=== PATIENT | female | born 1960 | race Caucasian/White ===

== ENCOUNTER 2017-03-10 09:34 | Inpatient (IN) | payer OTHER ==
[~2017-03-10] VITALS: Ht 157.5 cm; Wt 84.9 kg
--- NOTE | ~2017-03-10 | EKG ---
[place] [address] [employer] 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: [facility] : 1960 Requested By: Brii Weeks Order Number: [id number] MD: Daniel Ruth Measurements Intervals [place] Rate: 101 P: 34 [place]: 149 QRS: -3 QRSD: 88 T: 16 QT: 321 QTc: 416 Interpretive Statements Sinus tachycardia Otherwise no significant abnormality No previous ECG available for comparison Electronically Signed On 03-10-2017 12:48:10 K 12 SCHOOL PROFESSIONAL by Daniel Ruth [email or web address] <ELECTRONICALLY SIGNED> By: Daniel Ruth MD, [facility] 03/10/17 1248 0947 0947 Daniel Ruth MD, FACC /EPI
--- NOTE | ~2017-03-10 | HC ---
[facility] [place] [address] CONSULTATION Name: SERGIO JACKSON Room #: 217-P [facility] IN ..#: [id number] Admission: 03/10/17 Attend Phys: Cachorro Shell MD Discharge: Date of : 56 Report #: [id number] THIS REPORT FOR: //name// CC: Cachorro LIU unknown DATE OF SERVICE: 03/11/2017 ATTENDING PHYSICIAN: Dr. Cachorro Shell. REASON FOR CONSULTATION: Pneumonia, fever. HISTORY OF PRESENT ILLNESS: The patient is a 57-year-old white woman, resident of a local long term for a couple of years at least. She tells me she has been residing at the long term for a couple of years because of dementia. She relates she is admitted through the Emergency Room with right-sided chest pain, worsened by deep breathing, associated with fevers and leukocytosis and actually today she is better. The patient also relates that she was treated for pneumonia at the long term with an antibiotic given once daily and she knows antibiotics that are given only once daily will not take care of her pneumonia. PAST MEDICAL HISTORY: Bipolar disorder. Dementia. Depressive disorder. Gastroesophageal reflux. DRUG ALLERGIES: None listed. MEDICATIONS: She is currently on treatment with vancomycin 1 g IV two times daily, Zosyn 3.375 g IV every 6 hours. She has received a single dose of Levaquin 500 mg IV yesterday. She is also on treatment with methylprednisolone 40 mg IV twice daily, enoxaparin 40 mg subQ daily, meclizine, risperidone, clonazepam, meloxicam, intravenous fluid, zolpidem tartrate p.r.n. at bedtime, ondansetron 4 mg IV p.r.n. nausea and vomiting every 4 hours, p.r.n. hydrocodone, baclofen 10 mg b.i.d. SOCIAL HISTORY: . Resides in a local long term because of dementia. REVIEW OF SYSTEMS: Chest pain, fevers, night sweats, cough, all in all improved of lately. PHYSICAL EXAMINATION: GENERAL: Well-developed, mildly overweight woman. VITAL SIGNS: Temperature 100.2 yesterday, pulse 108, respirations 20, BP 102/60, O2 saturation 95% room air. HEENMT: Head normocephalic, atraumatic. Pupils reactive. Mouth: No thrush. NECK: Supple. LUNGS: Crackles right lung posteriorly. [facility] [address] [place] [address] CONSULTATION Name: SERGIO JACKSON Room #: 217-P [facility] [id number] Admission: 03/10/17 Attend Phys: Cachorro Shell MD Discharge: Date of : 56 Report #: [id number] HEART: S1, S2. No gallop or murmur. ABDOMEN: Soft, no masses or megaly. PELVIC AND RECTAL: Deferred. EXTREMITIES: No clubbing, cyanosis. NEUROLOGIC: Grossly within normal limits. LABORATORY DATA: On admission, sodium 134, potassium 3.9, BUN 13, creatinine 1, calcium 10.6, alkaline phosphatase 120. D-dimer mildly elevated 1.09. Drug screen positive for opiates. WBC 29,500, hemoglobin 16.5 g/dL, platelets 211,000. The white blood cell count differential revealed 78% segmented neutrophils, 9% bands. MRSA screen negative. The respiratory viral panel by PCR is pending at the time of this dictation. The urinalysis revealed 3+ blood. The microscopic exam revealed bacteriuria and mucus. ABGs yesterday revealed pH 7.46, pCO2 of 35, pO2 of 62, bicarbonate 25. This set of gases is on room air. MICROBIOLOGY DATA: Blood cultures negative. Urine is negative for legionella and Streptococcus pneumoniae antigen. Nasopharyngeal swab negative for influenza A and B antigens. RADIOLOGY EVALUATION: A CT scan chest PE protocol revealed dense consolidation right upper lung, some hilar and mediastinal adenopathy. Small right-sided pulmonary embolus. Review of the CT scan revealed also some infiltrate on the right upper lobe. The pneumonia had a roundish characterization, very likely we are dealing with a pneumonic event. Klebsiella pneumonia comes to mind. ASSESSMENT: 1. Right-sided pneumonia and very likely Klebsiella pneumonia. 2. Significant leukocytosis with bandemia. 3. Mild dehydration, improved. 4. Small right-sided pulmonary embolus. 5. Cigarette smoking. 6. Dementia. 7. Depression. SUGGESTIONS: For time being, recommend continuation of treatment with Zosyn and vancomycin. Possibly, we could discontinue vancomycin shortly, particularly since MRSA screen negative. We will await sputum culture results to make that final recommendation. The patient appears to have improved on current regimen of Zosyn and vancomycin. Consequently, we will continue same. [address] [address] CONSULTATION Name: SERGIO JACKSON Room #: 217-P [facility] IN M.R.#: [id number] Admission: 03/10/17 Attend Phys: Cachorro Shell MD Discharge: Date of : 56 Report #: [id number] Shell, thank you for requesting my suggestions in the care of your patient and I will continue to follow her along with you. <ELECTRONICALLY SIGNED> By: Pollo Felder MD 03/14/17 1228 1312 22 Pollo Felder MD /nt
--- NOTE | ~2017-03-10 | HC ---
[facility] [place] [address] CONSULTATION Name: SERGIO JACKSON Kyler Room #: 217-P [facility] IN ..#: [id number] Admission: 03/10/17 Attend Phys: Cachorro Shell MD Discharge: 03/15/17 Date of : 56 Report #: [id number] THIS REPORT FOR: //name// CC: Cachorro LIU unknown DATE OF SERVICE: 03/10/2017 REFERRING PROVIDER: REASON FOR CONSULTATION: Pneumonia. CHIEF COMPLAINT: Shortness of breath, incontinence, chest pain. HISTORY OF PRESENT ILLNESS: Our group was asked to evaluate the patient in consultation while hospitalized at [facility], a pleasant 57-year-old woman with a past medical history significant for tobacco use about half pack per day, as well as dementia, presented to the Emergency Department from [facility], where it sounds like she is in assisted living with her , with the above complaints of mainly right-sided lower chest pain anteriorly and laterally, was found on CT of the chest to have dense infiltrate versus mass-like area with some mediastinal lymphadenopathy. The patient did have an elevated white blood cell count of 29,000, was febrile with tachycardia and with bandemia. No elevated lactate, was started on antibiotics. No fluid bolus given to this point. The patient appears awake, alert, fully communicative and not requiring supplemental oxygen. ALLERGIES: None known. PAST MEDICAL HISTORY: 1. Bipolar disorder. 2. Dementia. 3. Anemia. 4. Esophageal reflux. 5. Chronic back pain for which she takes ibuprofen. OUTPATIENT MEDICATIONS: Include hydroxyzine for vertigo, cyclobenzaprine, Prilosec, VESIcare, atorvastatin, citalopram, senna, Cogentin, menthol, Cepacol lozenges and ibuprofen as well as nebulizer treatments p.r.n. SOCIAL HISTORY: Active smoker, about half pack per day. No alcohol consumption. Currently lives in [facility], what sounds like assisted living with her . FAMILY HISTORY: Significant for father who had vascular disease including a stroke. [facility] [address] [place] [address] CONSULTATION Name: SERGIO JACKSON Kyler Room #: 217-P [facility] IN ..#: [id number] Admission: 03/10/17 Attend Phys: Cachorro Shell MD Discharge: 03/15/17 Date of : 56 Report #: [id number] REVIEW OF SYSTEMS: CONSTITUTIONAL: No fever, no chills or rigors. ENT: No upper respiratory congestion or dysphagia or sore throat. CARDIOVASCULAR: No coronary history. No chest pain or palpitations. GASTROINTESTINAL: Some nausea, no vomiting. GENITOURINARY: Some incontinence noted with urgency, no hematuria or dysuria. INTEGUMENT: Denies any rash. MUSCULOSKELETAL: No new joint pain, swelling. Has some chronic back pain for which she takes ibuprofen. PHYSICAL EXAMINATION: VITAL SIGNS: Afebrile, pulse 90s, respiratory rate 16, blood pressure 100/73, oxygen saturation 94% on room air. GENERAL: This is a pleasant middle-aged woman, does not appear in distress, although with some delay in mentation and forgetfulness. EENT: Clear oropharynx. No thrush. No erythema. NECK: Supple. No lymphadenopathy. LUNGS: Diminished on the right with inspiratory crackles on the right. CARDIOVASCULAR: Heart tachycardic, but regular. No murmurs noted. ABDOMEN: Soft, nontender, no masses. EXTREMITIES: Warm, 2+ pulses, no edema. INTEGUMENT: No rash. LABORATORY DATA: White blood cell count 30,000; hemoglobin 17; hematocrit 48; platelet count 211; band forms 9%. Sodium 134, potassium 3.9, chloride 100, bicarbonate 27, BUN 13, creatinine 1.0, glucose 115, alkaline phosphatase 120. Troponin is negative. Albumin normal. Arterial blood gas done on room air revealed pH 7.47, pCO2 of 36, pO2 62, bicarbonate 25. Lactate 1.5. Drug of abuse screen positive only for opiates. Urinalysis with some blood in the urine with 3-10 red blood cells, no pyuria appreciated. D-dimer 1.09. CT chest as described. IMPRESSION: 1. Right lung infiltrate, likely pneumonia, less likely a malignant process. 2. Underlying chronic obstructive pulmonary disease, in severity does not sound severe. 3. Tobacco abuse. 4. Dementia. 5. Bipolar disorder. 6. Early sepsis as evidenced by tachycardia, fever, leukocytosis, bandemia and respiratory insufficiency. 7. Small pulmonary embolism noted on CT chest. RECOMMENDATIONS: 1. Anticoagulation. [address] [address] CONSULTATION Name: SERGIO JACKSON Room #: 217-P [facility] IN M.R.#: [id number] Admission: 03/10/17 Attend Phys: Cachorro Shell MD Discharge: 03/15/17 Date of : 56 Report #: [id number] 2. Bronchodilators. 3. Infectious Disease consultation. 4. Continue with antibiotic therapy. 5. Nasal swab for MRSA and respiratory viral panel. 6. Sputum and blood cultures. 7. Low-dose steroids. 8. Urinary pneumococcal legionella antigen test. 9. Additional recommendations to follow. Thank you for requesting our suggestions. <ELECTRONICALLY SIGNED> By: David Lee MD 03/17/17 2316 1629 0722 David Lee MD /nt
--- NOTE | ~2017-03-10 | D ---
[facility] [place] [address] DISCHARGE SUMMARY Name: SERGIO JACKSON Room #: 217-P [facility]..#: [id number] Admission: 03/10/17 Attend Phys: Cachorro Shell MD Discharge: 03/15/17 Date of : 56 Report #: [id number] THIS REPORT FOR: //name// CC: Cachorro Shell [facility] unknown DATE OF SERVICE: 03/15/2017 HISTORY OF PRESENT ILLNESS: The patient is a 57-year-old female who presented to the emergency room with cough. The patient is a intermediate resident. Please refer to the admission H and P for details. In brief, the patient was found to have leukocytosis with bandemia, as well as right lung consolidation. Findings were consistent with pneumonia. HOSPITALIZATION COURSE: The patient was hospitalized for healthcare-associated pneumonia, the patient lives at the intermediate. CT angiography was also obtained for further evaluation, that showed a dense right upper lobe posterior infiltrate or questionable mass. Single small left lower lobe pulmonary embolism was also seen. The patient was started on broad spectrum antibiotics. Checkman and infectious disease specialist were consulted. Right upper lobe infiltrate was felt to be more infectious etiology. On antibiotics, the patient's condition improved significantly. Antibiotics were deescalated. White count has normalized from about 30,000 on admission. The patient currently feels much better. She is afebrile, and shortness of breath has resolved. The patient will be discharged back to the intermediate on outpatient antibiotics. She is also prescribed Xarelto for small right-sided pulmonary embolism. DISCHARGE DIAGNOSES: 1. Healthcare-associated pneumonia, involving right upper lobe. Clinically much better. The patient is discharged on oral antibiotics. Close follow up with imaging study is recommended to ensure resolution of the infiltrate. 2. Single small left lower lobe pulmonary embolism on CT angiography of the chest. Treated with Xarelto. SECONDARY DIAGNOSES: History of bipolar disease, major depression, vertigo, gastroesophageal reflux disease, and irritable bowel syndrome. DISCHARGE MEDICATIONS: Please refer to the medication reconciliation list. In brief, the patient is started on Levaquin, this will be continued for 7 more days. Xarelto 15 mg b.i.d., followed by 20 mg once a day in 20 days. Rest of the home medications are continued unchanged. [address] [address] DISCHARGE SUMMARY Name: SERGIO JACKSON Kyler Room #: 217-P [facility] IN ..#: [id number] Admission: 03/10/17 Attend Phys: Cahcorro Shell MD Discharge: 03/15/17 Date of : 56 Report #: [id number] FOLLOWUP PLAN: Follow up with the primary care physician in 1-2 weeks. I spent greater than 30 minutes to coordinate the patient's discharge from the hospital. <ELECTRONICALLY SIGNED> By: Brett Rdz MD 03/16/17 0746 1356 1529 Brett Rdz MD /nt
[~2017-03-10 09:34] MED LIST: BENZTROPINE ME0.5 MG PO; CITALOPRAM HBR40 MG PO; CLONAZEPAM 0.50.5 M1 PO; CYCLOBENZAPRINE10 MG PO; HYDROCODONE-AP1 EAC6 PO; HYDROXYZINE HCL25 M1 PO; KLONOPIN1 MG PO; LIPITOR10 MG PO; MOBIC7.5 M1 PO; PRILOSEC20 MG PO; RISPERDAL0.5 MG PO; VESICARE 5 MG TA5 MG PO
[2017-03-10 09:35] VITALS: BP 124/81
[2017-03-10] MEDS ORDERED: ARICEPT 5 MG TAB5 MG PO (09:57)
[2017-03-10] MEDS ORDERED: SENNA8.6 MG PO (09:57)
[2017-03-10] MEDS ORDERED: ANTIVERT25 MG PO (09:58)
[2017-03-10] MEDS ORDERED: BENTYL 20 MG TA20 M1 PO (09:59)
[2017-03-10] MEDS ORDERED: CELEXA10 MG PO (10:00)
[2017-03-10] MEDS ORDERED: CELEXA20 MG PO (10:00)
[2017-03-10] MEDS ORDERED: LIORESAL 10 MG10 MG PO (10:01)
[2017-03-10] MEDS ORDERED: TUMS PO (10:02)
[2017-03-10] MEDS ORDERED: IBUPROFEN 400400 M2 PO (10:03)
[2017-03-10] MEDS ORDERED: CEPACOL SORE T1 EAC7 PO (10:03)
[2017-03-10] MEDS ORDERED: CLARITIN10 MG PO (10:03)
[2017-03-10 10:16] LABS: HEMATOCRIT 48.2 % (37.0-47.0); HEMOGLOBIN 16.5 gm/dL (12.0-15.0); MCH 32.4 pg (26.0-34.0); MCHC 34.2 g/dL (28.0-37.0); MCV 94.9 fL (80.0-100.0); PLATELET COUNT 211 thou/uL (150-400); RBC 5.08 mil/uL (4.20-5.00); RDW 12.8 % (10.5-14.5); WBC 29.5 thou/uL (4.0-11.0)
[2017-03-10 10:17] LABS: MANUAL DIFF YES
[2017-03-10 10:25] LABS: ANION GAP 7 mmol/L (7-16); BUN 13 mg/dL (7-18); CALCIUM 10.6 mg/dL (8.5-10.1); CHLORIDE 100 mmol/L (98-107); CO2 27 mmol/L (21-32); GLUCOSE 115 mg/dL (74-106); POTASSIUM 3.9 mmol/L (3.5-5.1); SODIUM 134 mmol/L (136-145)
[2017-03-10 10:34] LABS: TROPONIN-I < 0.04 ng/mL (<0.06)
[2017-03-10 10:51] LABS: ABG SAMPLE TYPE ARTERIAL; BE(vivo) 1.7 mmol/L (-2 to +3); LACTATE 1.54 mmol/L (0.5-2.0); O2(CT) 20.2 mL/dL (15.0-23.0); O2Hb 89.5 % (92.0-98.0); PCO2 35.5 mmHg (35.0-45.0); pH 7.466 (7.360-7.450); sO2 93.2 % (92.0-98.0); tCO2 26.1 mmol/L (24.0-30.0)
[2017-03-10 10:52] LABS: FIO2 21 %; STICK SITE R.RADIAL
[2017-03-10 10:56] LABS: ABSOLUTE NEUTROPHILS 25.7 thou/uL (1.4-8.2); PLATELET ESTIMATE NORMAL; TOTAL CELL COUNT 100
[2017-03-10 11:23] LABS: ALBUMIN 3.6 g/dL (3.4-5.0); DIRECT BILIRUBIN 0.2 mg/dL (<0.1-0.3); TOTAL BILIRUBIN 0.5 mg/dL (<0.1-1.0); TOTAL PROTEIN 7.9 g/dL (6.4-8.2)
[2017-03-10 12:14] LABS: URINE BILIRUBIN NEGATIVE (Negative); URINE BLOOD 3+ (Negative); URINE COLOR YELLOW; URINE GLUCOSE-RANDOM* NEGATIVE (Negative); URINE KETONES NEGATIVE (Negative); URINE NITRITE NEGATIVE (Negative); URINE PROTEIN (DIPSTICK) NEGATIVE (Negative); URINE SPECIFIC GRAVITY 1.015 (1.005-1.035); URINE UROBILINOGEN 0.2 E.U./dl (0.2-1.0)
[2017-03-10 12:20] LABS: BACTERIA >30 Many /HPF (None Seen); SQUAMOUS 0-3 Few /LPF (0-3)
[2017-03-10 12:21] LABS: AMP/METHAMP Negative (Negative); BARBITURATES Negative (Negative); BENZODIAZEPINES Negative (Negative); CASTS None Seen /LPF (None Seen); COCAINE Negative (Negative); CRYSTALS None Seen /LPF (None Seen); METHADONE Negative (Negative); OPIATES POSITIVE (Negative); PCP Negative (Negative); URINE RBC 3-10 Few /HPF (0-2); URINE WBC 0-5 Rare /HPF (0-5)
[2017-03-10 14:21] LABS: APTT 27.9 Seconds (24.5-32.8); PROTIME 10.6 Seconds (9.3-11.4)
[2017-03-10 15:37] VITALS: BP 100/73
[2017-03-10 19:33] VITALS: BP 124/70
[2017-03-10 23:41] VITALS: BP 111/64
[2017-03-11 03:44] VITALS: BP 107/67
[2017-03-11 03:53] LABS: HEMATOCRIT 40.4 % (37.0-47.0); MCH 31.9 pg (26.0-34.0); MCHC 33.8 g/dL (28.0-37.0); MCV 94.4 fL (80.0-100.0); RBC 4.27 mil/uL (4.20-5.00); WBC 29.7 thou/uL (4.0-11.0)
[2017-03-11 04:08] LABS: HEMOGLOBIN 13.6 gm/dL (12.0-15.0)
[2017-03-11 04:17] LABS: CREATININE 0.8 mg/dL (0.6-1.0); POTASSIUM 3.7 mmol/L (3.5-5.1)
[2017-03-11 07:38] VITALS: BP 129/74
[2017-03-11 11:30] VITALS: BP 102/60
[2017-03-11 15:35] VITALS: BP 115/68
[2017-03-11 19:58] VITALS: BP 111/74
[2017-03-12 02:58] LABS: HEMATOCRIT 39.3 % (37.0-47.0); HEMOGLOBIN 13.1 gm/dL (12.0-15.0); MCH 31.6 pg (26.0-34.0); MCHC 33.2 g/dL (28.0-37.0); PLATELET COUNT 210 thou/uL (150-400); RBC 4.13 mil/uL (4.20-5.00); RDW 13.3 % (10.5-14.5)
[2017-03-12 03:05] LABS: MANUAL DIFF YES
[2017-03-12 03:14] VITALS: BP 113/68
[2017-03-12 04:38] LABS: ABSOLUTE NEUTROPHILS 21.9 thou/uL (1.4-8.2); TOTAL CELL COUNT 100
[2017-03-12 07:35] VITALS: BP 126/83
[2017-03-12 11:11] VITALS: BP 119/80
[2017-03-12 15:37] VITALS: BP 110/71
[2017-03-12 19:50] VITALS: BP 111/70
[2017-03-13 04:17] VITALS: BP 126/86
[2017-03-13 04:23] LABS: HEMATOCRIT 38.6 % (37.0-47.0); HEMOGLOBIN 12.9 gm/dL (12.0-15.0); MCH 31.5 pg (26.0-34.0); MCHC 33.4 g/dL (28.0-37.0); MCV 94.3 fL (80.0-100.0); PLATELET COUNT 225 thou/uL (150-400); RDW 13.3 % (10.5-14.5); WBC 14.3 thou/uL (4.0-11.0)
[2017-03-13 04:25] LABS: MANUAL DIFF YES
[2017-03-13 05:42] LABS: ABSOLUTE NEUTROPHILS 12.9 thou/uL (1.4-8.2); METAMYELOCYTES 1 %; TOTAL CELL COUNT 100
[2017-03-13 16:00] VITALS: BP 149/88
[2017-03-13 20:47] VITALS: BP 124/84
[2017-03-14 03:20] VITALS: BP 153/102
[2017-03-14 03:41] LABS: HEMATOCRIT 39.8 % (37.0-47.0); HEMOGLOBIN 13.7 gm/dL (12.0-15.0); MCH 32.2 pg (26.0-34.0); MCHC 34.4 g/dL (28.0-37.0); MCV 93.6 fL (80.0-100.0); PLATELET COUNT 237 thou/uL (150-400); RBC 4.25 mil/uL (4.20-5.00); RDW 13.5 % (10.5-14.5); WBC 10.6 thou/uL (4.0-11.0)
[2017-03-14 03:45] LABS: MANUAL DIFF YES
[2017-03-14 05:26] LABS: ABSOLUTE NEUTROPHILS 8.6 thou/uL (1.4-8.2); MYELOCYTES 1 %; TOTAL CELL COUNT 100
[2017-03-14 08:58] VITALS: BP 130/83
[2017-03-14 11:00] VITALS: BP 144/94
[2017-03-14 15:00] VITALS: BP 123/80
[2017-03-14 19:16] VITALS: BP 136/86
[2017-03-14 23:07] LABS: INFLUENZA B Negative (Negative); METAPNEUMOVIRUS Negative (Negative)
[2017-03-15 04:35] VITALS: BP 132/84
[2017-03-15 04:38] LABS: HEMATOCRIT 39.8 % (37.0-47.0); HEMOGLOBIN 13.6 gm/dL (12.0-15.0); MCHC 34.1 g/dL (28.0-37.0); MCV 93.7 fL (80.0-100.0); PLATELET COUNT 233 thou/uL (150-400); RBC 4.24 mil/uL (4.20-5.00); RDW 13.1 % (10.5-14.5); WBC 10.9 thou/uL (4.0-11.0)
[2017-03-15 04:40] LABS: MANUAL DIFF YES
[2017-03-15 04:45] LABS: CALCIUM 9.5 mg/dL (8.5-10.1); CREATININE 0.8 mg/dL (0.6-1.0); POTASSIUM 3.3 mmol/L (3.5-5.1)
[2017-03-15 05:52] LABS: ABSOLUTE NEUTROPHILS 5.9 thou/uL (1.4-8.2); METAMYELOCYTES 4 %; NUCLEATED RBCS 1 /100WBC; TOTAL CELL COUNT 100
[2017-03-15 06:05] LABS: LARGE PLATELETS OCCASIONAL
[2017-03-15 08:18] VITALS: BP 135/91
[2017-03-15 12:04] VITALS: BP 135/94
[2017-03-15] MEDS ORDERED: HYDROCODONE-AP1 EAC6 PO (14:03)
[2017-03-15] MEDS ORDERED: XARELTO15 MG PO (14:03)
[2017-03-15] MEDS ORDERED: PREDNISONE 10 M10 MG PO (14:03)
[2017-03-15] MEDS ORDERED: LEVAQUIN 750 M750 MG PO (14:03)
[2017-03-15] MEDS ORDERED: CLONAZEPAM 1 MG1 M1 PO (14:03)
[2017-03-15] MEDS ORDERED: XARELTO20 MG PO (14:03)
[2017-03-15 15:46] VITALS: BP 139/96
== END 2017-03-15 16:00 | DRG 177 ==
LOC: ER 09:34 → EROBS 14:17 → 2N 14:17
PROVIDERS: Emergency Medicine; Hospitalist; Internal Medicine Endocrinology, Diabetes & Metabolism; Internal Medicine Pulmonary Disease
PROC: 5A09357 Assistance with Respiratory Ventilation, Less than 24 Consecutive Hours, Continuous Positive Airway Pressure (ICD-10-PCS; principal; 2017-03-14)
DX: J15.0 Pneumonia due to Klebsiella pneumoniae (principal); I26.99 Other pulmonary embolism without acute cor pulmonale; F31.9 Bipolar disorder, unspecified; K21.9 Gastro-esophageal reflux disease without esophagitis; F17.210 Nicotine dependence, cigarettes, uncomplicated; E66.9 Obesity, unspecified; F03.90 Unspecified dementia, unspecified severity, without behavioral disturbance, psychotic disturbance, mood disturbance, and anxiety; E87.6 Hypokalemia; K58.9 Irritable bowel syndrome, unspecified; E86.0 Dehydration; Z68.34 Body mass index [BMI] 34.0-34.9, adult; Z71.6 Tobacco abuse counseling; Z79.899 Other long term (current) drug therapy; Z82.49 Family history of ischemic heart disease and other diseases of the circulatory system; Z82.3 Family history of stroke
CPT/HCPCS: 10078; 10797

== ENCOUNTER 2018-03-28 16:25 | Emergency (ER) | payer OTHER ==
[~2018-03-28] VITALS: Ht 157.5 cm; Wt 54.4 kg
[~2018-03-28 16:25] MED LIST changes: +ANTIVERT25 MG PO; +ARICEPT 5 MG TAB5 MG PO; +BENTYL 20 MG TA20 M1 PO; +CELEXA10 MG PO; +CELEXA20 MG PO; +CEPACOL SORE T1 EAC7 PO; +CLARITIN10 MG PO; +CLONAZEPAM 1 MG1 M1 PO; +IBUPROFEN 400400 M2 PO; +LEVAQUIN 750 M750 MG PO; +LIORESAL 10 MG10 MG PO; +PREDNISONE 10 M10 MG PO; +SENNA8.6 MG PO; +TUMS PO; +XARELTO15 MG PO; +XARELTO20 MG PO
[2018-03-28 16:57] LABS: URINE BILIRUBIN NEGATIVE (Negative); URINE BLOOD 1+ (Negative); URINE CLARITY CLEAR; URINE COLOR YELLOW; URINE GLUCOSE-RANDOM* NEGATIVE (Negative); URINE KETONES NEGATIVE (Negative); URINE LEUKOCYTES-REFLEX TRACE (Negative); URINE NITRITE-REFLEX POSITIVE (Negative); URINE PROTEIN (DIPSTICK) NEGATIVE (Negative); URINE UROBILINOGEN 0.2 E.U./dl (0.2-1.0)
[2018-03-28] MEDS ORDERED: XARELTO20 MG PO (16:58)
[2018-03-28 17:02] LABS: BACTERIA-REFLEX >30 Many /HPF (None Seen); CASTS None Seen /LPF (None Seen); CRYSTALS None Seen /LPF (None Seen); SQUAMOUS 0-3 Few /LPF (0-3); URINE RBC 0-2 Rare /HPF (0-2); URINE WBC-REFLEX 6-15 Few /HPF (0-5); WBC CLUMPS Few (None Seen)
[2018-03-28 17:19] LABS: ABSOLUTE NEUTROPHILS 3.7 thou/uL (1.4-8.2); BASOPHILS 0.5 % (0.0-2.0); EOSINOPHILS 0.9 % (0.0-3.0); HEMATOCRIT 44.7 % (37.0-47.0); HEMOGLOBIN 15.8 gm/dL (12.0-15.0); LYMPHOCYTES 25.7 % (24.0-44.0); MCH 33.2 pg (26.0-34.0); MCHC 35.4 g/dL (28.0-37.0); MCV 93.8 fL (80.0-100.0); MONOCYTES 7.8 % (1.0-8.0); PLATELET COUNT 246 thou/uL (150-400); POLYS 65.1 % (36.0-66.0); RBC 4.77 mil/uL (4.20-5.00); RDW 12.4 % (10.5-14.5); WBC 5.6 thou/uL (4.0-11.0)
[2018-03-28 17:31] LABS: CREATININE 0.6 mg/dL (0.6-1.0); POTASSIUM 4.4 mmol/L (3.5-5.1)
[2018-03-28 17:37] LABS: ALBUMIN 4.1 g/dL (3.4-5.0); TOTAL BILIRUBIN 0.3 mg/dL (<0.1-1.0); TOTAL PROTEIN 7.8 g/dL (6.4-8.2)
[2018-03-28] MEDS ORDERED: KEFLEX500 M1 PO (18:37)
[2018-03-28] MEDS ORDERED: PHENAZOPYRIDIN200 M2 PO (18:37)
[2018-03-28 19:59] VITALS: BP 106/65
== END 2018-03-28 20:02 | disposition home or self-care (01) ==
LOC: ER 16:25
PROVIDERS: Physician Assistant
DX: N39.0 Urinary tract infection, site not specified (principal); F17.210 Nicotine dependence, cigarettes, uncomplicated; F31.9 Bipolar disorder, unspecified; K21.9 Gastro-esophageal reflux disease without esophagitis; K58.9 Irritable bowel syndrome, unspecified; Z90.49 Acquired absence of other specified parts of digestive tract; Z86.2 Personal history of diseases of the blood and blood-forming organs and certain disorders involving the immune mechanism

== ENCOUNTER 2018-10-05 18:51 | Emergency (ER) | payer OTHER ==
[~2018-10-05] VITALS: Ht 157.5 cm; Wt 59.0 kg
[~2018-10-05 18:51] MED LIST changes: +KEFLEX500 M1 PO; +PHENAZOPYRIDIN200 M2 PO
[2018-10-05 19:25] LABS: HEMATOCRIT 41.7 % (37.0-47.0); HEMOGLOBIN 14.4 gm/dL (12.0-15.0); MCHC 34.5 g/dL (28.0-37.0); MCV 95.6 fL (80.0-100.0); RBC 4.36 mil/uL (4.20-5.00); RDW 12.1 % (10.5-14.5); WBC 6.1 thou/uL (4.0-11.0)
[2018-10-05 19:32] LABS: ANION GAP 10 mmol/L (7-16); BUN 10 mg/dL (7-18); CALCIUM 9.5 mg/dL (8.5-10.1); CHLORIDE 103 mmol/L (98-107); CO2 27 mmol/L (21-32); CREATININE 0.9 mg/dL (0.6-1.0); GLUCOSE 125 mg/dL (74-106); POTASSIUM 3.5 mmol/L (3.5-5.1); SODIUM 140 mmol/L (136-145)
[2018-10-05 19:40] LABS: TROPONIN-I <0.06 ng/mL (<0.06)
[2018-10-05 20:56] LABS: URINE BILIRUBIN NEGATIVE (Negative); URINE BLOOD TRACE (Negative); URINE CLARITY CLEAR; URINE COLOR YELLOW; URINE GLUCOSE-RANDOM* NEGATIVE (Negative); URINE KETONES NEGATIVE (Negative); URINE LEUKOCYTES-REFLEX TRACE (Negative); URINE PROTEIN (DIPSTICK) NEGATIVE (Negative); URINE SPECIFIC GRAVITY <= 1.005 (1.005-1.035); URINE UROBILINOGEN 0.2 E.U./dl (0.2-1.0)
[2018-10-05 20:57] LABS: URINE NITRITE-REFLEX POSITIVE (Negative)
[2018-10-05 21:11] LABS: AMP/METHAMP Negative (Negative); BARBITURATES Negative (Negative); BENZODIAZEPINES Negative (Negative); COCAINE Negative (Negative); METHADONE Negative (Negative); OPIATES Negative (Negative); PCP Negative (Negative)
[2018-10-05 21:14] LABS: BACTERIA-REFLEX >30 Many /HPF (None Seen); SQUAMOUS 0-3 Few /LPF (0-3)
[2018-10-05 21:15] LABS: CASTS None Seen /LPF (None Seen); CRYSTALS None Seen /LPF (None Seen); URINE RBC 0-2 Rare /HPF (0-2); URINE WBC-REFLEX 0-5 Rare /HPF (0-5)
[2018-10-05 21:17] LABS: ALBUMIN 3.6 g/dL (3.4-5.0); DIRECT BILIRUBIN < 0.1 mg/dL (<0.1-0.3); SGOT 16 U/L (15-37); SGPT 16 U/L (30-65); TOTAL BILIRUBIN 0.2 mg/dL (<0.1-1.0); TOTAL PROTEIN 7.1 g/dL (6.4-8.2)
[2018-10-05] MEDS ORDERED: KEFLEX500 M1 PO (21:33)
[2018-10-05 21:48] VITALS: BP 110/64
--- NOTE | 2018-10-06 07:29 | EKG ---
[address] [place] [place] [address] ELECTROCARDIOGRAM REPORT Name: AB JACKSONJOSE Chávez Room #: 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: papo : 1960 Requested By: Esteban Sanderson Order Number: [id number] MD: Daniel Ruth Measurements Intervals [place] Rate: 94 P: 22 [place]: 139 QRS: -12 QRSD: 86 T: 17 QT: 352 QTc: 441 Interpretive Statements Sinus rhythm No significant abnormality Compared to ECG 03/10/2017 09:47:03 Sinus tachycardia no longer present Electronically Signed On 10-06-2018 7:29:36 CDT by Daniel Ruth [email or web address] ��������������������������������������������� <ELECTRONICALLY SIGNED> ���������������������������������������� By: Daniel Ruht MD, [facility] ��������������������������������������������� 10/06/18 0729 191 18 Daniel Ruth MD, FACC /EPI
== END 2018-10-05 21:49 | disposition home or self-care (01) ==
LOC: ER 18:51
PROVIDERS: Emergency Medicine
DX: R55 Syncope and collapse (principal); N39.0 Urinary tract infection, site not specified; F31.9 Bipolar disorder, unspecified; K21.9 Gastro-esophageal reflux disease without esophagitis; F17.210 Nicotine dependence, cigarettes, uncomplicated

== ENCOUNTER 2018-10-29 10:40 | Emergency (ER) | payer OTHER ==
[~2018-10-29] VITALS: Ht 162.6 cm; Wt 73.9 kg
[2018-10-29 12:53] LABS: URINE BILIRUBIN NEGATIVE (Negative); URINE BLOOD TRACE (Negative); URINE CLARITY SL CLOUDY; URINE COLOR YELLOW; URINE GLUCOSE-RANDOM* NEGATIVE (Negative); URINE KETONES NEGATIVE (Negative); URINE LEUKOCYTES-REFLEX TRACE (Negative); URINE NITRITE-REFLEX POSITIVE (Negative); URINE PROTEIN (DIPSTICK) NEGATIVE (Negative); URINE UROBILINOGEN 0.2 E.U./dl (0.2-1.0)
[2018-10-29] MEDS ORDERED: CIPRO500 MG PO (12:55)
[2018-10-29] MEDS ORDERED: PHENAZOPYRIDIN200 M2 PO (12:56)
[2018-10-29 13:02] LABS: BACTERIA-REFLEX >30 Many /HPF (None Seen); CASTS None Seen /LPF (None Seen); CRYSTALS None Seen /LPF (None Seen); SQUAMOUS 4-10 Moderate /LPF (0-3); URINE RBC 0-2 Rare /HPF (0-2); URINE WBC-REFLEX 6-15 Few /HPF (0-5)
[2018-10-29 13:28] VITALS: BP 124/83
== END 2018-10-29 13:29 | disposition home or self-care (01) ==
LOC: ER 10:40
PROVIDERS: Nurse Practitioner Family
DX: N39.0 Urinary tract infection, site not specified (principal); K21.9 Gastro-esophageal reflux disease without esophagitis; F31.9 Bipolar disorder, unspecified; F17.210 Nicotine dependence, cigarettes, uncomplicated; Z86.2 Personal history of diseases of the blood and blood-forming organs and certain disorders involving the immune mechanism

== ENCOUNTER 2018-11-28 09:13 | Emergency (ER) | payer OTHER ==
[~2018-11-28] VITALS: Ht 157.5 cm; Wt 60.3 kg
[~2018-11-28 09:13] MED LIST changes: +CIPRO500 MG PO
[2018-11-28] MEDS ORDERED: EPCLUSA 400 MG1 EACH PO (09:30)
[2018-11-28] MEDS ORDERED: CYMBALTA60 MG PO (09:32)
[2018-11-28] MEDS ORDERED: BENTYL 20 MG TA20 M1 PO (09:33)
[2018-11-28 10:35] VITALS: BP 113/82
== END 2018-11-28 10:35 | disposition home or self-care (01) ==
LOC: ER 09:13
DX: F31.9 Bipolar disorder, unspecified (principal); K21.9 Gastro-esophageal reflux disease without esophagitis; K58.9 Irritable bowel syndrome, unspecified; F17.210 Nicotine dependence, cigarettes, uncomplicated; Z86.2 Personal history of diseases of the blood and blood-forming organs and certain disorders involving the immune mechanism; Z88.2 Allergy status to sulfonamides; W18.39XA Other fall on same level, initial encounter; Y92.89 Other specified places as the place of occurrence of the external cause; Y93.89 Activity, other specified; Y99.8 Other external cause status

== ENCOUNTER 2019-03-07 00:04 | Emergency (ER) | payer OTHER ==
[~2019-03-07] VITALS: Ht 157.5 cm; Wt 53.5 kg
[~2019-03-07 00:04] MED LIST changes: +CYMBALTA60 MG PO; +EPCLUSA 400 MG1 EACH PO
[2019-03-07] MEDS ORDERED: MACROBID 100 M100 MG PO (00:17)
[2019-03-07 01:15] LABS: HEMATOCRIT 35.9 % (37.0-47.0); HEMOGLOBIN 12.3 gm/dL (12.0-15.0); MCH 32.3 pg (26.0-34.0); MCHC 34.1 g/dL (28.0-37.0); MCV 94.7 fL (80.0-100.0); PLATELET COUNT 249 thou/uL (150-400); RBC 3.79 mil/uL (4.20-5.00); RDW 12.4 % (10.5-14.5); WBC 12.5 thou/uL (4.0-11.0)
[2019-03-07 01:27] LABS: ANION GAP 11 mmol/L (7-16); BUN 10 mg/dL (7-18); CALCIUM 9.2 mg/dL (8.5-10.1); CHLORIDE 101 mmol/L (98-107); CO2 26 mmol/L (21-32); CREATININE 0.5 mg/dL (0.6-1.0); GLUCOSE 96 mg/dL (74-106); POTASSIUM 3.5 mmol/L (3.5-5.1); SODIUM 138 mmol/L (136-145)
[2019-03-07 01:33] LABS: TROPONIN-I <0.06 ng/mL (<0.06)
[2019-03-07] MEDS ORDERED: TESSALON PERLE100 MG PO (01:35)
[2019-03-07] MEDS ORDERED: AUGMENTIN 875-1 EACH PO (01:35)
[2019-03-07 02:24] LABS: ABSOLUTE NEUTROPHILS 9.1 thou/uL (1.4-8.2)
[2019-03-07 02:25] LABS: PLATELET ESTIMATE NORMAL
[2019-03-07 02:38] VITALS: BP 103/62
--- NOTE | 2019-03-07 08:53 | EKG ---
[place] [address] [facility] [place] [address] ELECTROCARDIOGRAM REPORT Name: AB JACKSONJOSE Chávez [facility] [id number] Admission: 03/07/19 Attend Phys: Discharge: 03/07/19 Date of : 56 Report #: [id number] THIS REPORT FOR: //name// [facility] ED Test Date: 2019-03-07 Test Time: 00:14:14 Pat Name: SERGIO JACKSON Department: Room: Gender: F Parts Counter Associate: JAYCOB : 1960 Requested By: Frank Humphries Order Number: [id number] MD: Daniel Ruth Measurements Intervals [place] Rate: 82 P: 35 CT: 133 QRS: -8 QRSD: 88 T: 54 QT: 389 QTc: 455 Interpretive Statements Sinus rhythm Anteroseptal infarct, age indeterminate Baseline wander in lead(s) V2 Compared to ECG 10/05/2018 19:19:24 Myocardial infarct finding now present Electronically Signed On 03-07-2019 8:53:29 SWIMMING POOL INSTALLER AND SERVICER by Daniel Ruth [email or web address] <ELECTRONICALLY SIGNED> By: Daniel Ruth MD, [facility] 03/07/19 0853 0014 0014 Daniel Ruth MD, [facility] /EPI
== END 2019-03-07 02:38 | disposition home or self-care (01) ==
LOC: ER 00:04
PROVIDERS: Emergency Medicine
DX: S20.221A Contusion of right back wall of thorax, initial encounter (principal); J18.9 Pneumonia, unspecified organism; K21.9 Gastro-esophageal reflux disease without esophagitis; K58.9 Irritable bowel syndrome, unspecified; F31.9 Bipolar disorder, unspecified; F17.210 Nicotine dependence, cigarettes, uncomplicated; Z86.2 Personal history of diseases of the blood and blood-forming organs and certain disorders involving the immune mechanism; Z88.8 Allergy status to other drugs, medicaments and biological substances; X58.XXXA Exposure to other specified factors, initial encounter; Y93.89 Activity, other specified; Y92.89 Other specified places as the place of occurrence of the external cause; Y99.8 Other external cause status

== ENCOUNTER 2019-04-16 03:09 | Inpatient (IN) | payer OTHER ==
[~2019-04-16] VITALS: Ht 157.5 cm; Wt 59.0 kg
[~2019-04-16 03:09] MED LIST changes: +AUGMENTIN 875-1 EACH PO; +MACROBID 100 M100 MG PO; +TESSALON PERLE100 MG PO
[2019-04-16 03:11] VITALS: BP 65/35
[2019-04-16 04:57] LABS: HEMATOCRIT 36.8 % (37.0-47.0); MCH 31.2 pg (26.0-34.0); MCHC 32.6 g/dL (28.0-37.0); MCV 95.7 fL (80.0-100.0); PLATELET COUNT 216 thou/uL (150-400); RBC 3.85 mil/uL (4.20-5.00); RDW 12.5 % (10.5-14.5); WBC 23.8 thou/uL (4.0-11.0)
[2019-04-16 05:22] LABS: ANION GAP 11 mmol/L (7-16); BUN 14 mg/dL (7-18); CALCIUM 8.8 mg/dL (8.5-10.1); CHLORIDE 102 mmol/L (98-107); CO2 25 mmol/L (21-32); CREATININE 0.6 mg/dL (0.6-1.0); GLUCOSE 103 mg/dL (74-106); POTASSIUM 3.4 mmol/L (3.5-5.1); SODIUM 138 mmol/L (136-145)
[2019-04-16 05:31] LABS: TROPONIN-I <0.06 ng/mL (<0.06)
[2019-04-16 05:53] LABS: ABSOLUTE NEUTROPHILS 22.6 thou/uL (1.4-8.2); METAMYELOCYTES 2 %
[2019-04-16 06:58] LABS: URINE BILIRUBIN NEGATIVE (Negative); URINE BLOOD NEGATIVE (Negative); URINE CLARITY CLEAR; URINE COLOR YELLOW; URINE GLUCOSE-RANDOM* NEGATIVE (Negative); URINE KETONES NEGATIVE (Negative); URINE LEUKOCYTES-REFLEX NEGATIVE (Negative); URINE NITRITE-REFLEX NEGATIVE (Negative); URINE PROTEIN (DIPSTICK) NEGATIVE (Negative); URINE SPECIFIC GRAVITY 1.015 (1.005-1.035); URINE UROBILINOGEN 0.2 E.U./dl (0.2-1.0)
[2019-04-16 07:05] LABS: AMP/METHAMP POSITIVE (Negative); BARBITURATES Negative (Negative); BENZODIAZEPINES Negative (Negative); COCAINE Negative (Negative); METHADONE Negative (Negative); OPIATES Negative (Negative); PCP Negative (Negative)
[2019-04-16 07:44] VITALS: BP 103/64
--- NOTE | 2019-04-16 08:34 | NUR ---
[place] [id number] AT THIS TIME.
[2019-04-16 13:01] VITALS: BP 94/58
[2019-04-16 13:14] VITALS: BP 91/54
--- NOTE | 2019-04-16 14:33 | NUR ---
PT ARRIVED TO UNIT ESCORTED BY ED STAFF. PT FLUIDS INFUSING ON TRANSPORT. PT ANSWERS ORIENTATION QUESTIONS APPROPRIATELY BUT VERY FORGETFUL. PT REPORTS EARLY DEMENTIA DIAGNOSIS. PT AMBULATED TO TOILET. UNSTEADY TO WALK BY SELF, FALL PRECAUTIONS INITIATED. PT REQUESTED REGULAR DIET AND PSYCH CONSULT. STATES, "I THINK I NEED TO GO BACK ON MY CYMBALTA." NOTIFIED DR. AMAYA, ORDERS RECEIVED. PT AT BEDSIDE. UPON HIM LEAVING ROOM TO GO OUTSIDE, PATIENT SPOKE ABOUT POSITIVE DRUG SCREEN. STATES THAT SHE DOES NOT WANT HER TO KNOW. STATES THAT SHE SMOKED MARIJUANA WITH A FRIEND TWICE IN LAST COUPLE WEEKS. STATES THAT SHE USED TO TAKE METH ON A REGULAR BASIS BUT HAS STOPPED FOR MANY YEARS. STATES THAT SHE USED METH A FEW WEEKS AGO ONLY ONETIME WITH A FRIEND. SPOKE WITH PATIENT ABOUT POSSIBLE WITHDRAWAL SYMPTOMS. PT STATES THAT SHE WILL NOT HAVE WITHDRAWALS. NICOTINE PATCH IN PLACE FROM THE ED.
--- NOTE | 2019-04-16 15:01 | EKG ---
[address] [address] ELECTROCARDIOGRAM REPORT Name: RENETTASERGIO Chávez Room #: 362-P ADM IN M.R.#: [id number] Admission: 04/16/19 Attend Phys: Chris Khan MD Discharge: Date of : 56 Report #: [id number] THIS REPORT FOR: //name// [facility] ED Test Date: 2019-04-16 Test Time: 03:24:06 Pat Name: SERGIO JACKSON Department: Room: 362 Gender: F Conservation Scientist: CARMEN : 1960 Requested By: Frank Humphries Order Number: [id number] MD: Nolberto Felder Measurements Intervals [place] Rate: 101 P: 64 [place]: 138 QRS: -5 QRSD: 79 T: 39 QT: 332 QTc: 431 Interpretive Statements Sinus tachycardia Probable left atrial enlargement Anteroseptal infarct, old Compared to ECG 03/07/2019 00:14:14 Sinus rhythm no longer present Myocardial infarct finding still present Electronically Signed On 04-16-2019 15:01:03 SALES TEAM RECRUITER by Nolberto Felder [email or web address] <ELECTRONICALLY SIGNED> By: Nolberto Felder MD 04/16/19 1500 0324 0324 Nolberto Felder MD /ROSINA
[2019-04-16 17:00] VITALS: BP 101/57
[2019-04-16 20:16] VITALS: BP 103/55
[2019-04-17 01:59] VITALS: BP 108/56
[2019-04-17 04:30] VITALS: BP 94/57
[2019-04-17 07:54] VITALS: BP 90/49
--- NOTE | 2019-04-17 07:58 | NUR ---
PT MAKING SLOW PROGRESS TOWARDS GOALS. PT UP WITH STAFF IN THE ROOM WITH STABLE GAIT. PT IMPULSIVE AND STANDING AT BEDSIDE FREQUENTLY. STATED GAIT WAS STABLE PT MOVED TO TOILET AND BACK TO BED. SLIGHT SOA NOTED WITH ACTIVITY. SEE CHARTING.
--- NOTE | 2019-04-17 09:38 | NUR ---
PATIENT ADEMENTLY DECLINED OT EVALUATION. WILL DISCHARGE AT THIS TIME.
[2019-04-17 10:00] LABS: HEMOGLOBIN 11.4 gm/dL (12.0-15.0); MCH 31.6 pg (26.0-34.0); MCHC 32.5 g/dL (28.0-37.0); MCV 97.3 fL (80.0-100.0); PLATELET COUNT 223 thou/uL (150-400); RBC 3.59 mil/uL (4.20-5.00); RDW 12.7 % (10.5-14.5)
[2019-04-17 10:19] LABS: ALBUMIN 2.4 g/dL (3.4-5.0); ANION GAP 7 mmol/L (7-16); BUN 14 mg/dL (7-18); CHLORIDE 101 mmol/L (98-107); CO2 23 mmol/L (21-32); CREATININE 0.7 mg/dL (0.6-1.0); GLUCOSE 141 mg/dL (74-106); MAGNESIUM 1.8 mg/dL (1.8-2.4); POTASSIUM 3.2 mmol/L (3.5-5.1); SGOT 18 U/L (15-37); SGPT 17 U/L (30-65); SODIUM 131 mmol/L (136-145); TOTAL BILIRUBIN 0.3 mg/dL (<0.1-1.0); TOTAL PROTEIN 5.7 g/dL (6.4-8.2); TROPONIN-I <0.06 ng/mL (<0.06)
[2019-04-17 11:16] LABS: ABSOLUTE NEUTROPHILS 19.3 thou/uL (1.4-8.2); METAMYELOCYTES 1 %; PLATELET ESTIMATE NORMAL
[2019-04-17 11:25] VITALS: BP 90/52
--- NOTE | 2019-04-17 11:47 | 2DMMODE ---
[facility] [place] [address] 2 D/M-MODE ECHOCARDIOGRAM Name: CYNTHIAHUNTERSERGIO Room #: 362-P [facility] IN .R.#: [id number] Admission: 04/16/19 Attend Phys: Chris Khan MD Discharge: Date of : 56 Report #: [id number] THIS REPORT FOR: //name// APPROVED REPORT Study performed: 04/17/2019 10:54:39 EXAM: Comprehensive 2D, Doppler, and color-flow Echocardiogram Patient Location: Bedside Room #: 362 Status: routine BSA: 1.53 HR: 73 bpm BP: 90/49 mmHg Rhythm: NSR Other Information Study Quality: Adequate Indications Hypotension COPD Dyspnea Lung mass 2D Dimensions RVDd: 32.17 mm IVSd: 6.20 (7-11mm) LVOT Diam: 19.07 (18-24mm) LVDd: 44.96 mm PWd: 8.82 (7-11mm) Ascending Ao: 30.61 (22-36mm) LVDs: 27.47 (25-40mm) Aortic Root: 29.30 mm IVC: 19.00 mm Volumes Left Atrial Volume (Systole) Single Plane 4CH: 16.80 mL Single Plane 2CH: 30.69 mL LA ESV Index: 18.00 mL/m2 Aortic Valve AoV Peak Terence.: 1.26 m/s AO Peak Gr.: 6.31 mmHg LVOT Max P.02 mmHg LVOT Max V: 1.12 m/s NORMA Vmax: 2.55 cm2 Mitral Valve [facility] [address] [place] [address] 2 D/M-MODE ECHOCARDIOGRAM Name: RENETTASERGIO Room #: 362-P [facility] IN Jonathan.#: [id number] Admission: 04/16/19 Attend Phys: Chris Khan MD Discharge: Date of : 56 Report #: [id number] E/A Ratio: 1.3 MV Decel. Time: 160.81 ms MV E Max Terence.: 1.06 m/s MV A Terence.: 0.79 m/s MV PHT: 46.64 ms IVRT: 73.82 ms Pulmonary Valve PV Peak Terence.: 0.82 m/s PV Peak Gr.: 2.70 mmHg Pulmonary Vein P Vein S: 0.50 m/s P Vein A: 0.27 m/s P Vein D: 0.42 m/s P Vein A Dur.: 92.3 msec P Vein S/D Ratio: 1.19 Tricuspid Valve TR Peak Terence.: 2.51 m/s TR Peak Gr.: 25.29 mmHg PA Pressure: 35.00 mmHg Left Ventricle The left ventricle is normal size. There is normal LV segmental wall motion. There is normal left ventricular wall thickness. Left ventricular systolic function is normal. The left ventricular ejection fraction is within the normal range. LVEF is 55-60%. Right Ventricle The right ventricle is normal size. The right ventricular systolic function is normal. Atria The left atrium size is normal. The right atrium size is normal. Aortic Valve The aortic valve is normal in structure. No aortic regurgitation is present. There is no aortic valvular stenosis. Mitral Valve The mitral valve is normal in structure. Trace mitral regurgitation. No evidence of mitral valve stenosis. Tricuspid Valve The tricuspid valve is normal in structure. There is mild tricuspid regurgitation. Estimated PAP 35 mmHg. [facility] [place] [address] 2 D/M-MODE ECHOCARDIOGRAM Name: SERGIO JACKSON Room #: 362-P ADM IN M.R.#: [id number] Admission: 04/16/19 Attend Phys: Chris Khan MD Discharge: Date of : 56 Report #: [id number] Pulmonic Valve The pulmonary valve is normal in structure. There is no pulmonic valvular regurgitation. Great Vessels The aortic root is normal in size. IVC is normal in size and collapses <50% with inspiration. Pericardium There is no pericardial effusion. <Conclusion> The left ventricle is normal size. There is normal left ventricular wall thickness. Left ventricular systolic function is normal. The right ventricle is normal size. The left atrium size is normal. The aortic valve is normal in structure. Trace mitral regurgitation. There is mild tricuspid regurgitation. Estimated PAP 35 mmHg. <ELECTRONICALLY SIGNED> By: Trevon Haywood MD 04/17/19 1146 1146 1146 Trevon Haywood MD /INF
[2019-04-17 15:39] VITALS: BP 101/67
--- NOTE | 2019-04-17 16:30 | NUR ---
Assumed care approx. 0700 this AM. Pt started off the shift with soft BP's. Per orders morphine couldn't be given and patient was in severe pain. Dr. Khan notified and ordered a 500 ml fluid bolus this morning then gave permission to administer newly ordered hydrocodone with bolus infusion. Pt stated pain subsided substantially after hydrocodone administration. Pt changed from fall risk to NOT a fall risk as she is steady and balanced on her feet. The patient has been walking fine with the IV pole too. Fluids infusing per orders. Will continue to monitor. Pt slowly progressing toward goals.
[2019-04-17 19:20] VITALS: BP 96/62
--- NOTE | 2019-04-18 03:49 | NUR ---
ASSUMED CARE FROM DAY SHIFT PT UP AMBUALTING HALLWAY AND ROOM , C/O RIB PAIN WITH MOVEMNET, PAIN MEDICATION GIVEN PRESCRIBED. DRY COUGH NOTED, IVF INFUSING WELL ABX GIVEN. BP STABLE THIS EVENING, MORPHINE HELD AND NORCO GIVEN FOR PAIN. PT ATE BOX LUNCH THIS EVENING ATE 100 % TOLERATED WELL. CARDIA MONITOR SHOWS NSR,WILL CONTINUE WITH CURRENT PLAN OF CARE AND WILL REPORT CHANGES OR ABNORMAL FINDINGS.
[2019-04-18 04:01] VITALS: BP 96/62
[2019-04-18 07:48] VITALS: BP 130/78
[2019-04-18 11:53] VITALS: BP 113/71
--- NOTE | 2019-04-18 14:54 | NUR ---
INITIAL ASSESSMENT: Received consult. HOA reviewed chart and spoke with nursing and attending physician. Pt was admitted from home due to right sided chest pain/sepsis. Pt is on IV meds. Pt is progressing towards goals for discharge. Discharge home is anticipated in 1-2 days. Psych consult ordered. HOA met with pt at bedside. Introduced role of SW. Pt is alert/orientated x 4. Pt reports she currently lives with her in an apt at [address] at [address] [place] [address]. Pt states that she has plans to move in with her friend. Pt's spouse to move with them. Pt states that she and her spouse are not together any more, but she takes care of him, as he is diabetic and unable to take care of himself. Pt and spouse used to live at [facility]. Prior to admission, pt was independent with ADLs. No use of DME. Pt's PCP is Dr. Cristina Cortes. Pt discussed need for pt and spouse to receive additional services. SW offered to provide pt with info for [facility] and [facility] services. Pt declines offer stating that [facility] has helped them in the past. Pt states she will call them once she gets settled in her new home. Pt declines having any needs at time of discharge. SW is following to assist as needed with discharge planning.
[2019-04-18 16:50] VITALS: BP 154/95
--- NOTE | 2019-04-18 17:22 | NUR ---
ASSUMED CARE OF PT AT 0700. PT ALERT AND ORIENTED X4 IN NO ACUTE DISTRESS. PLEURISY PAIN IMPROVING. UP AD GRECIA. IV ABX INFUSING PER ORDER. CALLS OUT APPROPRIATELY.L PT PROGRESSING TOWARD POC GOALS.
[2019-04-18 19:34] VITALS: BP 124/75
[2019-04-19 02:53] VITALS: BP 138/88
--- NOTE | 2019-04-19 03:56 | NUR ---
ASSUMED CARE FROM DAY SHIFT PT UP WALKING IN HALLWAY, C/O LOWER LEG EDEMA IN FEET BILATERALLY, STILL COMPLAIN OF RIB PAIN WITH MOVEMENT. POWDER GUARD SHOWS NSR. DENIES SOA, IVF FLUIDS INFUSING WELL AND PT RECIEVING ABX . PAINS REQUESTED EVERY 4 HOURS OTC. WILL CONINTUE WITH CURRENT PLAN OF CARE AND WILL REPORT CHANGES .
[2019-04-19 07:44] VITALS: BP 141/89
[2019-04-19 11:29] VITALS: BP 144/92
[2019-04-19] MEDS ORDERED: ACETAMINOPHEN325 M1 PO (14:18)
[2019-04-19] MEDS ORDERED: HYDROCODON-ACE1 EAC7 PO (14:18)
[2019-04-19] MEDS ORDERED: MUCINEX600 MG PO (14:18)
[2019-04-19] MEDS ORDERED: ALBUTEROL2.5 MG/31 INH (14:18)
[2019-04-19] MEDS ORDERED: LASIX 40 MG TAB40 M2 PO (14:18)
[2019-04-19] MEDS ORDERED: AUGMENTIN 875-1 EACH PO (14:18)
[2019-04-19] MEDS ORDERED: NICOTINE TRANSD14 M1 TRANSDERM (14:18)
[2019-04-19 14:36] VITALS: BP 144/92
--- NOTE | 2019-04-19 15:31 | NUR ---
DISCHARGE NOTE: HOA reviewed chart and spoke with nursing and attending physician. Pt is medically stable for discharge home today. No discharge needs identified at this time, but is available to assist should needs arise.
== END 2019-04-19 15:00 | disposition home or self-care (01) | DRG 871 ==
LOC: ER 03:09 → EROBS 07:43 → 3W 07:43
PROVIDERS: Emergency Medicine; ADMIT Internal Medicine
DX: A41.9 Sepsis, unspecified organism (principal); J69.0 Pneumonitis due to inhalation of food and vomit; G92 Toxic encephalopathy; E43 Unspecified severe protein-calorie malnutrition; J96.01 Acute respiratory failure with hypoxia; F15.921 Other stimulant use, unspecified with intoxication delirium; F19.10 Other psychoactive substance abuse, uncomplicated; F31.9 Bipolar disorder, unspecified; K21.9 Gastro-esophageal reflux disease without esophagitis; F12.90 Cannabis use, unspecified, uncomplicated; F17.210 Nicotine dependence, cigarettes, uncomplicated; F03.90 Unspecified dementia, unspecified severity, without behavioral disturbance, psychotic disturbance, mood disturbance, and anxiety; G89.4 Chronic pain syndrome; J44.9 Chronic obstructive pulmonary disease, unspecified; R63.4 Abnormal weight loss; K58.9 Irritable bowel syndrome, unspecified; Z71.6 Tobacco abuse counseling; Z88.8 Allergy status to other drugs, medicaments and biological substances; Z86.711 Personal history of pulmonary embolism; Z91.19 Patient's noncompliance with other medical treatment and regimen; Z83.3 Family history of diabetes mellitus; Z68.23 Body mass index [BMI] 23.0-23.9, adult
CPT/HCPCS: 10879

== ENCOUNTER 2019-05-14 04:40 | Emergency (ER) | payer OTHER ==
[~2019-05-14] VITALS: Ht 157.5 cm; Wt 54.0 kg
[~2019-05-14 04:40] MED LIST changes: +ACETAMINOPHEN325 M1 PO; +ALBUTEROL2.5 MG/31 INH; +HYDROCODON-ACE1 EAC7 PO; +LASIX 40 MG TAB40 M2 PO; +MUCINEX600 MG PO; +NICOTINE TRANSD14 M1 TRANSDERM
[2019-05-14 05:19] LABS: HEMATOCRIT 42.5 % (37.0-47.0); HEMOGLOBIN 13.7 gm/dL (12.0-15.0); MCH 30.2 pg (26.0-34.0); MCHC 32.1 g/dL (28.0-37.0); MCV 94.1 fL (80.0-100.0); PLATELET COUNT 371 thou/uL (150-400); RBC 4.52 mil/uL (4.20-5.00); RDW 12.9 % (10.5-14.5); WBC 23.1 thou/uL (4.0-11.0)
[2019-05-14 05:24] LABS: ANION GAP 9 mmol/L (7-16); BUN 20 mg/dL (7-18); CALCIUM 10.3 mg/dL (8.5-10.1); CHLORIDE 100 mmol/L (98-107); CO2 28 mmol/L (21-32); CREATININE 0.7 mg/dL (0.6-1.0); GLUCOSE 108 mg/dL (74-106); POTASSIUM 3.5 mmol/L (3.5-5.1); SODIUM 137 mmol/L (136-145)
[2019-05-14 05:31] LABS: APTT 29.4 Seconds (24.5-32.8); PROTIME 10.3 Seconds (9.3-11.4)
[2019-05-14 05:35] LABS: ALBUMIN 3.5 g/dL (3.4-5.0); MAGNESIUM 2.4 mg/dL (1.8-2.4); SGOT 21 U/L (15-37); SGPT 25 U/L (30-65); TOTAL BILIRUBIN 0.5 mg/dL (<0.1-1.0); TOTAL PROTEIN 8.6 g/dL (6.4-8.2); TROPONIN-I <0.06 ng/mL (<0.06)
[2019-05-14] MEDS ORDERED: TESSALON PERLE100 MG PO (05:59)
[2019-05-14] MEDS ORDERED: NORCO 5-325 TA1 EAC1 PO (05:59)
[2019-05-14] MEDS ORDERED: PREDNISONE 20 M20 MG PO (05:59)
[2019-05-14 06:15] VITALS: BP 120/85
[2019-05-14 06:39] LABS: LARGE PLATELETS OCCASIONAL
--- NOTE | 2019-05-14 08:19 | EKG ---
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: [facility] : 1960 Requested By: You Nye Order Number: [id number] MD: Nolberto Felder Measurements Intervals [place] Rate: 106 P: -78 [place]: 139 QRS: 56 QRSD: 81 T: -51 QT: 335 QTc: 445 Interpretive Statements Sinus or ectopic atrial tachycardia Left atrial enlargement Probable left ventricular hypertrophy Anterior Q waves, possibly due to LVH Borderline T abnormalities, inferior leads Baseline wander in lead(s) V3 Compared to ECG 04/16/2019 03:24:06 Electronically Signed On 05-14-2019 8:18:27 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
== END 2019-05-14 06:15 | disposition home or self-care (01) ==
LOC: ER 04:40
PROVIDERS: Emergency Medicine
DX: J18.9 Pneumonia, unspecified organism (principal); D72.829 Elevated white blood cell count, unspecified; F15.10 Other stimulant abuse, uncomplicated; F31.9 Bipolar disorder, unspecified; K21.9 Gastro-esophageal reflux disease without esophagitis; F17.210 Nicotine dependence, cigarettes, uncomplicated; Z86.2 Personal history of diseases of the blood and blood-forming organs and certain disorders involving the immune mechanism; Z79.01 Long term (current) use of anticoagulants; Z86.711 Personal history of pulmonary embolism; Z88.8 Allergy status to other drugs, medicaments and biological substances

== ENCOUNTER 2019-05-18 09:29 | Emergency (ER) | payer OTHER ==
[~2019-05-18] VITALS: Ht 157.5 cm; Wt 54.0 kg
[~2019-05-18 09:29] MED LIST changes: +NORCO 5-325 TA1 EAC1 PO; +PREDNISONE 20 M20 MG PO
[2019-05-18 10:57] LABS: AMP/METHAMP POSITIVE (Negative); BARBITURATES Negative (Negative); BENZODIAZEPINES Negative (Negative); COCAINE Negative (Negative); METHADONE Negative (Negative); OPIATES POSITIVE (Negative); PCP Negative (Negative)
[2019-05-18 11:24] LABS: HEMATOCRIT 35.3 % (37.0-47.0); HEMOGLOBIN 11.7 gm/dL (12.0-15.0); MCH 30.6 pg (26.0-34.0); MCV 92.8 fL (80.0-100.0); PLATELET COUNT 353 thou/uL (150-400); RBC 3.81 mil/uL (4.20-5.00); RDW 13.4 % (10.5-14.5); WBC 15.5 thou/uL (4.0-11.0)
[2019-05-18 11:41] LABS: ABSOLUTE NEUTROPHILS 14.3 thou/uL (1.4-8.2); METAMYELOCYTES 1 %
[2019-05-18 11:42] LABS: ANISOCYTOSIS SLIGHT
[2019-05-18 11:44] LABS: ANION GAP 7 mmol/L (7-16); BUN 11 mg/dL (7-18); CALCIUM 9.4 mg/dL (8.5-10.1); CHLORIDE 98 mmol/L (98-107); CO2 30 mmol/L (21-32); CREATININE 0.7 mg/dL (0.6-1.0); GLUCOSE 125 mg/dL (74-106); POTASSIUM 3.6 mmol/L (3.5-5.1); SODIUM 135 mmol/L (136-145)
[2019-05-18 11:53] LABS: TROPONIN-I <0.06 ng/mL (<0.06)
--- NOTE | 2019-05-18 13:08 | EKG ---
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 : 1960 Requested By: Esteban Sanderson Order Number: [id number] MD: Nolberto Felder Measurements Intervals [place] Rate: 84 P: 61 ND: 133 QRS: -12 QRSD: 84 T: 30 QT: 358 QTc: 424 Interpretive Statements Sinus rhythm Probable left atrial enlargement Anteroseptal infarct, age indeterminate Baseline wander in lead(s) V3 Compared to ECG 05/14/2019 04:48:55 Electronically Signed On 05-18-2019 13:07:39 ADULT BASIC EDUCATION INSTRUCTOR by Nolberto Felder [email or web address] <ELECTRONICALLY SIGNED> By: Nolberto Felder MD 05/18/19 1307 [id number] [id number] Nolberto Felder MD /EPI
[2019-05-18] MEDS ORDERED: LEVAQUIN 750 M750 MG PO (13:43)
[2019-05-18] MEDS ORDERED: PROMETH-CODEIN 65 ML PO (13:43)
[2019-05-18 14:00] VITALS: BP 141/80
== END 2019-05-18 14:00 | disposition home or self-care (01) ==
LOC: ER 09:29
PROVIDERS: Emergency Medicine
DX: J18.9 Pneumonia, unspecified organism (principal); F17.210 Nicotine dependence, cigarettes, uncomplicated; Z88.8 Allergy status to other drugs, medicaments and biological substances; F31.9 Bipolar disorder, unspecified; K21.9 Gastro-esophageal reflux disease without esophagitis; Z86.711 Personal history of pulmonary embolism; J44.9 Chronic obstructive pulmonary disease, unspecified; Z79.899 Other long term (current) drug therapy